=== PATIENT | male | born 1980 | race American Indian/Alaskan Native ===

== ENCOUNTER 2017-07-03 11:07 | Emergency (ER) | payer SELFPAY ==
[2017-07-03 11:15] VITALS: BP 150/70; PULSE 75; RESP 18; TEMP 97; O2SAT 99
--- NOTE | 2017-07-03 11:39 | ED PDOC ---
HPI: General Adult Time Seen by Provider: 07/03/17 11:16 Chief Complaint (Nursing): ENT Problem Chief Complaint (Provider): tooth pain, jaw pain, neck pain History Per: Patient Additional Complaint(s): 36 year old male presents to ED with left sided dental pain, jaw pain and neck pain for 1 week. Patient thinks pain originates in his left posterior molar tooth. He states tylenol has helped the pain when taken. No associated ear pain, dizziness, headache, fever or chills. Patient is tolerating liquids and solids. Past Medical History Reviewed: Historical Data, Nursing Documentation, Vital Signs Vital Signs: Last Vital Signs Temp 97 F L 07/03/17 11:12 Pulse 75 07/03/17 11:12 Resp 18 07/03/17 11:12 BP 150/70 07/03/17 11:12 Pulse Ox 99 07/03/17 11:39 - Medical History PMH: No Chronic Diseases - Family History Family History: States: No Known Family Hx - Living Arrangements Living Arrangements: With Family - Social History Current smoker - smoking cessation education provided: No Alcohol: None Drugs: Denies - Home Medications Home Medications: Ambulatory Orders Medication Instructions Recorded Amoxicillin/Potassium Clav 1 tab PO BID #14 tab 02/06/15 [Augmentin 500 mg-125 mg] oxyCODONE/Acetaminophen [Percocet 1 tab PO Q4H PRN #20 tab 02/06/15 5/325 mg Tab] Clindamycin [Cleocin] 300 mg PO TID #21 cap 07/03/17 Ibuprofen [Motrin Tab] 800 mg PO Q8 PRN #20 tab 07/03/17 - Allergies Allergies/Adverse Reactions: Allergies Allergy/AdvReac Type Severity Reaction Status Date / Time No Known Allergies Allergy Verified 02/06/15 16:46 Review of Systems ROS Statement: Except As Marked, All Systems Reviewed And Found Negative Constitutional: Negative for: Fever ENT: Positive for: Other (dental pain/jaw pain) Cardiovascular: Negative for: Chest Pain Respiratory: Negative for: Cough Gastrointestinal: Negative for: Nausea, Vomiting Musculoskeletal: Positive for: Neck Pain (left side radiating from tooth) Neurological: Negative for: Headache, Dizziness Physical Exam - Reviewed Nursing Documentation Reviewed: Yes Vital Signs Reviewed: Yes - Physical Exam Appears: Positive for: Well, Non-toxic, No Acute Distress Head Exam: Positive for: ATRAUMATIC, NORMAL INSPECTION Skin: Negative for: Rash Eye Exam: Positive for: Normal appearance ENT: Positive for: Other (left posterior molar tooth is decayed with mild tenderness on palpation, swelling noted to left mandibular region, no discrete abscess noted, no intra-oral drainage or bleeding, airway is patent) Neck: Positive for: Normal Cardiovascular/Chest: Positive for: Regular Rate, Rhythm Respiratory: Positive for: Normal Breath Sounds Neurologic/Psych: Positive for: Alert, Oriented - ECG O2 Sat by Pulse Oximetry: 99 Pulse Ox Interpretation: Normal Medical Decision Making Medical Decision Making: Impression: dental caries and tooth pain Plan: PO motrin Rx motrin and clindamycin given along with referral to dentist. Disposition - Clinical Impression Clinical Impression: Dental caries, Pain, dental - Patient ED Disposition Is Patient to be Admitted: No Counseled Patient/Family Regarding: Studies Performed, Diagnosis, Need For Followup, Rx Given - Disposition Referrals: Alan David DDS [Staff Provider] - Disposition: Routine/Home Disposition Time: 11:49 Condition: STABLE Additional Instructions: Take prescription medications as directed. Follow-up with dentist as soon as possible. Prescriptions: Clindamycin [Cleocin] 300 mg PO TID #21 cap Ibuprofen [Motrin Tab] 800 mg PO Q8 PRN #20 tab PRN Reason: Pain, Moderate (4-7) Instructions: Dental Caries (ED), Toothache (ED) Forms: [facility] (Romansh)
== END 2017-07-03 12:08 | disposition home or self-care (01) ==
LOC: SUPCPDRO 11:07 → H.ER 11:07
DX: K02.9 Dental caries, unspecified (principal)

== ENCOUNTER 2017-10-15 13:30 | Emergency (ER) | payer SELFPAY ==
[2017-10-15 14:01] VITALS: BP 129/61; PULSE 71; RESP 16; TEMP 97.8; O2SAT 99
--- NOTE | 2017-10-15 14:50 | ED PDOC ---
HPI: Dental Pain/Injury Time Seen by Provider: 10/15/17 14:37 Chief Complaint (Nursing): Dental Pain Chief Complaint (Provider): LEFT cheek swelling History Per: Patient History/Exam Limitations: no limitations Onset/Duration Of Symptoms: Days (2) Current Symptoms Are (Timing): Still Present Severity: Moderate Quality: Aching Additional Complaint(s): Pt reports long-standing h/o problem with LEFT lower 3rd molar. (Seen in this ER multiple times for same) Swelling on LEFT face/jaw started 2 days ago Denies fever Has no dentist or PMD Past Medical History Reviewed: Historical Data, Nursing Documentation, Vital Signs Vital Signs: Last Vital Signs Temp 97.8 F 10/15/17 13:59 Pulse 71 10/15/17 13:59 Resp 16 10/15/17 13:59 BP 129/61 10/15/17 13:59 Pulse Ox 99 10/15/17 13:59 - Medical History PMH: No Chronic Diseases - Family History Family History: States: Diabetes - Social History Current smoker - smoking cessation education provided: No - Home Medications Home Medications: Ambulatory Orders Medication Instructions Recorded Amoxicillin/Potassium Clav 1 tab PO BID #14 tab 02/06/15 [Augmentin 500 mg-125 mg] oxyCODONE/Acetaminophen [Percocet 1 tab PO Q4H PRN #20 tab 02/06/15 5/325 mg Tab] Clindamycin [Cleocin] 300 mg PO TID #21 cap 07/03/17 Ibuprofen [Motrin Tab] 800 mg PO Q8 PRN #20 tab 07/03/17 Clindamycin [Cleocin] 300 mg PO TID #21 cap 10/15/17 Ibuprofen [Motrin Tab] 600 mg PO Q8 PRN #60 tab 10/15/17 - Allergies Allergies/Adverse Reactions: Allergies Allergy/AdvReac Type Severity Reaction Status Date / Time No Known Allergies Allergy Verified 02/06/15 16:46 Review of Systems ROS Statement: Except As Marked, All Systems Reviewed And Found Negative Constitutional: Negative for: Fever, Chills ENT: Positive for: Mouth Pain Physical Exam - Reviewed Nursing Documentation Reviewed: Yes Vital Signs Reviewed: Yes - Physical Exam Appears: Positive for: Non-toxic, No Acute Distress Head Exam: Positive for: ATRAUMATIC, NORMOCEPHALIC Skin: Positive for: Warm, Dry ENT: Positive for: Pharynx Is (clear), Other (LEFT mandible: discrete firm swelling at angle of mandible, nontender, immobile. Oral exam: +deep cavity of LEFT lower 3rd molar with growth of gingiva and mucosa into tooth. No abscess.) . Negative for: Tonsillar Exudate, Tonsillar Swelling Neck: Positive for: Painless ROM, Supple Lymphatic: Negative for: Adenopathy - ECG O2 Sat by Pulse Oximetry: 99 Disposition - Clinical Impression Clinical Impression: Toothache, Swelling of mandible - Disposition Referrals: Raimundo Roe DDS [Doctor Dental Surgery] - () Alan David DDS [Staff Provider] - Disposition: Routine/Home Disposition Time: 14:53 Condition: GOOD Additional Instructions: FOLLOW UP WITH THE DENTIST AND/OR DENTAL SURGEON SOON POSSIBLE Prescriptions: Clindamycin [Cleocin] 300 mg PO TID #21 cap Ibuprofen [Motrin Tab] 600 mg PO Q8 PRN #60 tab PRN Reason: Pain, Moderate (4-7) Instructions: Toothache (ED) Forms: [facility] ED School/Work Excuse
== END 2017-10-15 15:24 | disposition home or self-care (01) ==
LOC: H.ER 13:30
DX: K08.89 Other specified disorders of teeth and supporting structures (principal)

== ENCOUNTER 2018-02-11 11:21 | Emergency (ER) | payer MEDICAID ==
[2018-02-11 11:25] VITALS: BMI 24.3
[2018-02-11 11:27] VITALS: BP 129/75; PULSE 55; RESP 20; TEMP 97.7; O2SAT 98
--- NOTE | 2018-02-11 12:14 | ED PDOC ---
HPI: Dental Pain/Injury Time Seen by Provider: 02/11/18 11:42 Chief Complaint (Nursing): Dental Pain Chief Complaint (Provider): Left lower dental pain, facial swelling History Per: Patient History/Exam Limitations: no limitations Onset/Duration Of Symptoms: Hrs Current Symptoms Are (Timing): Still Present Additional Complaint(s): 37 yo male with history of left lower dental decay comes to ER for evaluation. PT states he woke up this morning with swelling on the left side of the face. Pt states he saw a dentist once for issue and was told tooth needs to be removed. Pt states that he did not go back because the swelling went down and he hda no pain until this morning. Pt called dentist and has appointment for sunday (today is Sunday). Pt states he was unable to go to work today because of swelling. No fever/chills. No swelling. Past Medical History Reviewed: Historical Data, Nursing Documentation, Vital Signs Vital Signs: Last Vital Signs Temp 97.7 F 02/11/18 11:27 Pulse 55 L 02/11/18 11:27 Resp 20 02/11/18 11:27 BP 129/75 02/11/18 11:27 Pulse Ox 98 02/11/18 11:38 - Medical History PMH: No Chronic Diseases - Surgical History Surgical History: No Surg Hx - Family History Family History: States: Diabetes - Living Arrangements Living Arrangements: With Family - Social History Current smoker - smoking cessation education provided: No - Home Medications Home Medications: Ambulatory Orders Medication Instructions Recorded Amoxicillin/Potassium Clav 1 tab PO BID #14 tab 02/06/15 [Augmentin 500 mg-125 mg] oxyCODONE/Acetaminophen [Percocet 1 tab PO Q4H PRN #20 tab 02/06/15 5/325 mg Tab] Clindamycin [Cleocin] 300 mg PO TID #21 cap 07/03/17 Ibuprofen [Motrin Tab] 800 mg PO Q8 PRN #20 tab 07/03/17 Clindamycin [Cleocin] 300 mg PO TID #21 cap 10/15/17 Ibuprofen [Motrin Tab] 600 mg PO Q8 PRN #60 tab 10/15/17 Amoxicillin/Clavulanate [Augmentin 1 tab PO BID #20 tab 02/11/18 875 MG-125 MG] - Allergies Allergies/Adverse Reactions: Allergies Allergy/AdvReac Type Severity Reaction Status Date / Time No Known Allergies Allergy Verified 02/06/15 16:46 Review of Systems ROS Statement: Except As Marked, All Systems Reviewed And Found Negative Constitutional: Negative for: Fever, Chills ENT: Positive for: Other Physical Exam - Reviewed Nursing Documentation Reviewed: Yes Vital Signs Reviewed: Yes - Physical Exam Appears: Positive for: Well, Non-toxic, No Acute Distress Head Exam: Positive for: ATRAUMATIC, NORMAL INSPECTION, NORMOCEPHALIC Skin: Positive for: Normal Color, Warm, DRY Eye Exam: Positive for: Normal appearance ENT: Negative for: Normal ENT Inspection (Significant dental decay, lower left molar without drainage or abscess formation) Neck: Positive for: Normal, Painless ROM Respiratory: Negative for: Accessory Muscle Use, Respiratory Distress Back: Positive for: Normal Inspection Extremity: Positive for: Normal ROM Neurologic/Psych: Positive for: Alert, Oriented - ECG O2 Sat by Pulse Oximetry: 98 Disposition - Clinical Impression Clinical Impression: Dental caries, Swelling of mandible - Patient ED Disposition Is Patient to be Admitted: No Counseled Patient/Family Regarding: Diagnosis, Need For Followup, Rx Given - Disposition Disposition: Routine/Home Disposition Time: 12:15 Condition: STABLE Prescriptions: Amoxicillin/Clavulanate [Augmentin 875 MG-125 MG] 1 tab PO BID #20 tab Instructions: Tooth Decay, Adult
== END 2018-02-11 12:28 | disposition home or self-care (01) ==
LOC: H.ER 11:21
DX: K02.9 Dental caries, unspecified (principal); R22.0 Localized swelling, mass and lump, head